=== PATIENT | female | born 1990 | race Caucasian/White ===

== ENCOUNTER 2024-05-19 16:08 | Inpatient (IN) | payer OTHER ==
[2024-05-19 16:38] VITALS: BMI 27.4
[2024-05-19] MEDS ORDERED: ONDANSETRON *ODT* 4 MG TABLET SL PRN (16:49)
[2024-05-19] MEDS ORDERED: IBUPROFEN 600 MG TABLET (FP) PO PRN (16:49)
[2024-05-19] MEDS ORDERED: LOPERAMIDE HCL 2 MG CAPSULE PO PRN (16:49)
[2024-05-19] MEDS ORDERED: BISMUTH SUBSALICYLATE 524 MG/30 ML PO PRN (16:49)
[2024-05-19] MEDS ORDERED: MAG HYDROX/AL HYDROX/SIMETH 30 ML UNIT-DOSE CUP PO PRN (16:49)
[2024-05-19] MEDS ORDERED: BENZONATATE 200 MG CAPSULE PO PRN (16:49)
[2024-05-19] MEDS ORDERED: DICYCLOMINE HCL 10 MG CAPSULE PO PRN (16:49)
[2024-05-19] MEDS ORDERED: hydrOXYzine PAMOATE 25 MG CAPSULE (FP) PO PRN (16:49)
[2024-05-19] MEDS ORDERED: guaiFENesin 600 MG TABLET.ER (FP) PO PRN (16:49)
[2024-05-19] MEDS ORDERED: ACETAMINOPHEN 325 MG TABLET (FP) PO PRN (16:49)
[2024-05-19] MEDS ORDERED: IBUPROFEN 400 MG TABLET (FP) PO PRN (16:49)
[2024-05-19] MEDS ORDERED: METOPROLOL TARTRATE 25 MG TABLET (FP) ONE (17:40)
[2024-05-19] MEDS: METOPROLOL TARTRATE 25 MG TABLET (FP) PO ONE (17:42)
[2024-05-19] MEDS: THIAMINE 100 MG TABLET PO SCH (22:39)
[2024-05-19] MEDS: METHOCARBAMOL 500 MG TABLET PO PRN (22:39)
[2024-05-19] MEDS: MELATONIN 5 MG TABLETS PO SCH (22:39)
[2024-05-19] MEDS: MAGNESIUM HYDROX 2400MG/30ML ORAL SUSPENSION 30 ML CUP PO PRN (22:40)
[2024-05-20] MEDS: PRENATAL VITAMINS W/ FOLIC ACID TABLET (FP) PO SCH (09:45)
[2024-05-20] MEDS: POLYETHYLENE GLYCOL (HEALTHYLAX) 3350 17 GM PACKET PO PRN (09:46)
[2024-05-20 10:50] LABS: HEMATOCRIT 39.5 % (32.4-45.2); MEAN CELL VOLUME 97.1 fl (80-96); PLATELET COUNT 331 10^3/uL (134-434); RBC 4.07 M/mm3 (3.60-5.2); RDW 12.7 % (11.6-15.6); WHITE BLOOD COUNT 6.6 K/mm3 (4.0-10.0)
[2024-05-20 11:02] LABS: POTASSIUM 3.9 mmol/L (3.5-5.1)
[2024-05-20 11:04] LABS: ALBUMIN 3.1 g/dl (3.4-5.0); BLOOD UREA NITROGEN 8.4 mg/dL (7-18); CALCIUM 8.8 mg/dL (8.5-10.1)
[2024-05-20 11:09] LABS: BILIRUBIN,TOTAL 0.3 mg/dL (0.2-1); CREATININE 0.7 mg/dL (0.55-1.3); TOT PROT 6.6 g/dl (6.4-8.2)
[2024-05-20] MEDS ORDERED: chlordiazePOXIDE HCL 25 MG CAPSULE PO PRN (13:31)
[2024-05-20] MEDS: DOCUSATE SODIUM 100 MG CAPSULE (FP) PO SCH (14:01)
[2024-05-20] MEDS: chlordiazePOXIDE HCL 25 MG CAPSULE PO SCH (17:59)
[2024-05-20] MEDS: SENNOSIDES 8.6MG TABLET (FP) PO SCH (22:17)
[2024-05-21] MEDS: BENZOCAINE/MENTHOL (CHLORASEPTIC ) LOZENGE MM PRN (06:37)
[2024-05-21 09:21] VITALS: BP 125/87; PULSE 107; RESP 20; TEMP 98
[2024-05-22] MEDS ORDERED: chlordiazePOXIDE HCL 25 MG CAPSULE PO SCH (05:00)
[2024-05-23] MEDS ORDERED: chlordiazePOXIDE HCL 10 MG CAPSULE PO PRN
[2024-05-23] MEDS ORDERED: chlordiazePOXIDE HCL 10 MG CAPSULE PO SCH (05:00)
[2024-05-24] MEDS ORDERED: chlordiazePOXIDE HCL 10 MG CAPSULE PO SCH (05:00)
[2024-05-25] MEDS ORDERED: chlordiazePOXIDE HCL 10 MG CAPSULE PO ONE (05:00)
== END 2024-05-21 10:51 | disposition home or self-care (01) | DRG 775 ==
LOC: YASAS 16:08 → Y6N 17:10
PROVIDERS: ADMIT Surgery; ATTEND Surgery
PROC: HZ2ZZZZ Detoxification Services for Substance Abuse Treatment (ICD-10-PCS; principal; 2024-05-19)
DX: F10.230 Alcohol dependence with withdrawal, uncomplicated (principal); F10.288 Alcohol dependence with other alcohol-induced disorder; K59.00 Constipation, unspecified
CPT/HCPCS: 36415; 80053; 80305; 80307; 81025; 85027; 86780; 93005; 93010